=== PATIENT | female | born 1950 | race Caucasian/White ===

== ENCOUNTER 2020-04-01 15:55 | Emergency (ER) | payer MEDICARE, SELFPAY ==
--- NOTE | ~2020-04-01 | XR_ITS ---
EXAMINATION: XR chest 2V 04/01/2020 18:51 INDICATION: Shortness of breath. Lower extremity edema. PROCEDURE: 2 view chest COMPARISON: No prior studies for comparison. FINDINGS: The lungs are clear. The lungs are hyperinflated which is consistent with, but not diagnost ic of chronic obstructive pulmonary disease. The cardiomediastinal silhouette is within normal limits . There are no pleural effusions. There is no pneumothorax suspected. IMPRESSION: 1: NO ACUTE CARDIOPULMONARY DISEASE. Reviewed, dictated and finalized at location A. [facility]
[2020-04-01 15:58] VITALS: BP 138/88; PULSE 60; RESP 12; TEMP 35.7; O2SAT 100
--- NOTE | 2020-04-01 17:58 | ED.EXTPRO ---
HPI - Extremity Problem General Chief complaint: Extremity Problem,Nontraumatic Stated complaint: swollen feet and legs Time Seen by Provider: 04/01/20 16:49 Source: patient Mode of arrival: ambulatory Limitations: no limitations History of Present Illness HPI Narrative: This very pleasant 69-year-old lady comes into the ED today with a literal list of problems. Patient states that she has been unable to get into her primary care doctor because they are so far booked out due to Covid. Patient's main complaint today is that her bilateral lower extremities are swelling. Patient denies any pain associated with this. She also notes some redness and discoloration of her lower extremities. She denies any drainage or heat from her lower extremities. She does note that she has a chair with an ottoman that she typically sleeps in. Patient denies any history of dyspnea, dyspnea with exertion or chest pain. She states that she has never been diagnosed with congestive heart failure or clotting disorders. Patient notes that this has been building up over time and seems to get worse after she is sitting in her chair. Next patient notes a longstanding history of sinusitis associated with polyps and nasal congestion. She notes that this is not new or different for her and that this is her usual. She denies any new drainage. Next the patient states that she is having some issues with the cleanliness of the home that she lives on. She states that there are bedbugs and mice. She denies any rashes or pruritus at this time. Patient also endorses a change in the quality of her nails as well as loss of hair. Related Data Allergies Allergy/AdvReac Type Severity Reaction Status Date / Time No Known Allergies Allergy Verified 04/01/20 16:01 Review of Systems Review of Systems: Narrative: CONSTITUTIONAL: Denies fever, chills, or sweats. EYES: Denies visual changes, redness, or discharge. ENT: Denies rhinorrhea, congestion, sore throat, or otalgia. CARDIOVASCULAR: Denies chest pain, palpitations, or edema. RESPIRATORY: Denies cough or dyspnea. GASTROINTESTINAL: Denies abdominal pain, nausea, vomiting, or diarrhea. GENITOURINARY: Denies dysuria or hematuria. SKIN: Denies rash or itching. MUSCULOSKELETAL: Denies back pain, joint pain, or myalgia. Endorses edema in the bilateral lower extremities NEUROLOGIC: Denies headache, numbness, dizziness, or weakness. PSYCHIATRIC: Denies anxiety or depression. Exam Narrative: Exam Narrative: GENERAL: Well-appearing, well-nourished, and in no acute distress. HEAD: Normocephalic, atraumatic. EYES: PERRLA and EOMI. ENT: Nares clear, no rhinorrhea or epistaxis. Mucous membranes moist. Oropharynx without tonsillar hypertrophy exudate or other lesions. Bilateral TMs pearly pack nonbulging NECK: Supple. No adenopathy or masses. No carotid bruits or JVD CHEST: Clear to auscultation. No respiratory distress. No wheezes rales or rhonchi HEART: Regular rate and rhythm. No murmur heard. Normal peripheral pulses. ABDOMEN: Soft, nontender, nondistended, normal active bowel sounds. EXTREMITIES: Normal range of motion. 2+ pitting edema bilateral lower extremities SKIN: Warm, dry, no rash. NEURO: No focal deficits. Alert and oriented x3. PSYCH: Normal mood and affect. Course Vital Signs Vital signs: Vital Signs Temperature 35.7 C L 04/01/20 15:58 Pulse Rate 60 04/01/20 15:58 Respiratory Rate 12 04/01/20 15:58 Blood Pressure 138/88 04/01/20 15:58 Pulse Oximetry 100 04/01/20 15:58 Temperature 35.7 C L 04/01/20 15:58 Pulse Rate 60 04/01/20 19:04 Respiratory Rate 16 04/01/20 19:04 Blood Pressure 153/86 H 04/01/20 19:04 Pulse Oximetry 96 04/01/20 19:04 MDM - Extremity (Nontraumatic) MDM Narrative Medical decision making narrative: In brief this 69-year-old lady came into the emergency department with a multitude of complaints. None of them emergent. I did address the patient's pitting e
[2020-04-01] MEDS: FUROSEMIDE 40 MG TABLET PO (19:02)
[2020-04-01 19:04] VITALS: BP 153/86; PULSE 60; RESP 16; O2SAT 96
== END 2020-04-01 19:46 | disposition home or self-care (01) ==
PROVIDERS: Emergency Provider Emergency Medicine
DX: R60.9 Edema, unspecified (principal)
CPT/HCPCS: 71046; 99283; A9270

== ENCOUNTER 2020-06-19 08:20 | Outpatient (CLI) | payer MEDICARE, SELFPAY ==
--- NOTE | ~2020-06-19 | CT_ITS ---
EXAMINATION:CT lung screening DATE: 06/19/2020 10:19 INDICATION: Personal history of tobacco dependence. Current smoker with 50 pack year history. TECHNIQUE: Computed tomography (CT) of the chest was performed without intravenous contrast. Automate d exposure control and iterative reconstruction technique were employed. The dose-length product (DLP ) was 62.31 mGy-cm. COMPARISON: None. FINDINGS: There is mild scarring at the lung apices. There is mild emphysema. There is a 4 mm nodule at the minor fissure. There are patchy mild groundglass opacities in basilar right lower lobe. No ple ural effusion. The heart size is normal. There are coronary artery calcifications. No pericardial eff usion. There is kyphosis of thoracic spine with mild chronic anterior wedging of multiple vertebral b odies and mild spondylosis. IMPRESSION: 1. Lung-RADS category 2: Benign appearance or behavior. Continue annual screening with noncontrast lo w-dose chest CT in 12 months. 2. Mild patchy groundglass opacities in basilar right lower lobe, consistent with mild pneumonia. Reviewed, dictated and finalized at location B. IMPRESSION: 1. Lung-RADS category 2: Benign appearance or behavior. Continue annual screeni ng with noncontrast low-dose chest CT in 12 months. 2. Mild patchy groundglass opacities in basilar right lower lobe, consistent wi th mild pneumonia.
--- NOTE | 2020-06-19 08:44 | ECHO_ITS ---
Patient Info Name: Teresa Arroyo Age: 69 years : 1950 Gender: Female Ht: 66 in Wt: 171 lbs BSA: 1.92 m2 HR: 73 bpm BP: 127 / 66 mmHg Heart Rhythm: Sinus Rhythm Exam Date: 06/19/2020 9:05 AM Exam Location: [facility] Patient Status: Outpatient Admit Date: 06/19/2020 Staff Ordering Physician: Meliton Garcia MD Wallpaper Remover Steam: Mei Lester RDCS Attending Provider: Meliton Garcia MD Exam Type: CA echo doppler color flow Study Info Indications R60.9 - Edema, unspecified Complete two-dimensional, color flow and Doppler transthoracic echocardiogram is performed. Summary 1. Complete two-dimensional, color flow and Doppler transthoracic echocardiogram is performed. 2. Left ventricular chamber dimension is normal. 3. Left ventricular systolic function is normal, estimated at 60-65%. 4. The left ventricular diastolic function is grade I diastolic dysfunction. 5. E/e' 9 is minimally elevated. 6. Left atrial chamber dimension is mildly enlarged. 7. There is moderate aortic valve sclerosis. 8. There is mild mitral valve regurgitation. 9. There is mild tricuspid valve regurgitation. 10. No pulmonary hypertension, estimated pulmonary arterial systolic pressure is 35 mmHg. Left Ventricle E/e' 9 is minimally elevated. Left ventricular chamber dimension is normal. Left ventricular systolic function is normal, estimated at 60-65%. The left ventricular diastolic function is grade I diastolic dysfunction. Right Ventricle Right ventricular chamber dimension is normal. Right ventricular systolic function is normal. Left Atria Left atrial chamber dimension is mildly enlarged. Right Atria Right atrial chamber dimension is normal. Aortic Valve The aortic valve is trileaflet. There is moderate aortic valve sclerosis. There is no aortic valve stenosis. There is no aortic valve regurgitation. Pulmonic Valve There is no pulmonic regurgitation. Mitral Valve There is no mitral valve stenosis. There is mild mitral valve regurgitation. Tricuspid Valve There is mild tricuspid valve regurgitation. No pulmonary hypertension, estimated pulmonary arterial systolic pressure is 35 mmHg. Pericardium/Pleural There is no pericardial effusion. Inferior Vena Cava Normal inferior vena cava with >50% collapse upon inspiration consistent with normal right atrial pressure, 5 mmHg. Aorta The aortic root size at the sinus of Valsalva is normal. Left Ventricular Outflow Tract Name Value Normal LVOT 2D LVOT Diameter 1.8 cm LVOT Doppler LVOT Peak Gradient 7 mmHg LVOT Mean Gradient 3 mmHg LVOT VTI 31 cm LVOT VTI/AV VTI Ratio 0.9 LVOT Stroke Volume 84 ml LVOT CO 6.4 l/min LVOT CI 3.4 l/min/m2 Pulmonic Valve Name Value Normal
[2020-06-19 09:10] LABS: Basophils Percent Auto 0.5 % (0.2-1.2); Eosinophils Absolute Auto 0.1 K/mm3 (0-0.3); Eosinophils Percent Auto 2.5 % (0-4.4); Hematocrit 29.8 % (37.0-47.0); Hemoglobin 9.4 g/dL (12.0-15.0); Immature Granulocyte Absolute 0.02 K/mm3 (0.00-0.031); Immature Granulocyte Percent A 0.4 % (0-0.5); Lymphocytes Absolute Auto 1.08 K/mm3 (0.9-3.2); Lymphocytes Percent Auto 19.4 % (18.3-44.2); Mean Corpuscular HGB Conc 31.5 g/dl (32-36); Mean Corpuscular Hemoglobin 30.1 pg (26-34); Mean Corpuscular Volume 95.5 fl (80-100); Mean Platelet Volume 8.4 fl (7.4-10.4); Monocytes Absolute Auto 0.7 K/mm3 (0.1-0.6); Monocytes Percent Auto 11.8 % (2.6-8.5); Neutrophils Absolute Auto 3.7 K/mm3 (1.3-6.7); Neutrophils Percent Auto 65.4 % (45.5-73.1); Platelet Count Result 274 k/mm3 (150-375); Red Blood Count 3.12 M/mm3 (4.2-5.4); Red Cell Distribution Width 14.3 % (11.5-14.5); White Blood Count 5.6 K/mm3 (4.5-10.0)
[2020-06-19 09:22] LABS: Alanine Aminotransferase 26 U/L (4-35); Alkaline Phosphatase 99 U/L (38-126); Anion Gap 6 mmol/L (8-16); Aspartate Amino Transferase 34 U/L (14-36); Bilirubin,Total 0.5 mg/dL (0.2-1.3); Blood Urea Nitrogen 19 mg/dL (7-17); Calcium 9.7 mg/dL (8.4-10.2); Carbon Dioxide 31 mmol/L (22-30); Chloride 100 mmol/L (98-107); Cholesterol 123 mg/dL (0-200); Estimated Glomerular Filt Rate > 60; Glucose 92 mg/dL (65-105); HDL Direct 37 mg/dL; Potassium 4.8 mmol/L (3.4-5.0); Sodium 137 mmol/L (137-145); Triglycerides 62 mg/dL (<150)
[2020-06-19 09:31] LABS: NT Pro B Type Natriuretic Pept 143 pg/mL (5-100)
[2020-06-19 09:33] LABS: LDL Cholesterol Direct 62 mg/dL
[2020-06-19 10:58] LABS: Creatinine Urine 7.4 mg/dL
[2020-06-19 11:15] LABS: Vitamin D 25 Hydroxy 67.9 ng/mL
[2020-06-19 12:55] LABS: Microalbumin Urine Random < 6.0 mg/L (0-16.7)
== END 2020-06-19 08:21 | disposition home or self-care (01) ==
PROVIDERS: PCP Internal Medicine; Visit Provider Internal Medicine
DX: E03.9 Hypothyroidism, unspecified (principal); R03.0 Elevated blood-pressure reading, without diagnosis of hypertension; R60.9 Edema, unspecified; Z72.0 Tobacco use; E78.2 Mixed hyperlipidemia; I50.9 Heart failure, unspecified; Z87.891 Personal history of nicotine dependence; R91.8 Other nonspecific abnormal finding of lung field; I34.0 Nonrheumatic mitral (valve) insufficiency; I35.1 Nonrheumatic aortic (valve) insufficiency; I36.1 Nonrheumatic tricuspid (valve) insufficiency
CPT/HCPCS: 36415; 71271; 80053; 80061; 82043; 82306; 83880; 84443; 85025; 93306

== ENCOUNTER 2021-06-18 20:10 | Emergency (ER) | payer MEDICARE, SELFPAY ==
[2021-06-18 20:17] VITALS: BP 120/77; PULSE 89; RESP 14; TEMP 36.9; O2SAT 96
--- NOTE | 2021-06-18 21:15 | ED.GENADULT ---
HPI - General Adult General Chief complaint: Anxiety Stated complaint: IBS, constipated Time Seen by Provider: 06/18/21 21:00 Source: patient Mode of arrival: ambulatory Limitations: no limitations History of Present Illness HPI narrative: Patient is a 70-year-old female complaining of poor appetite, stress at home, problems with my irritable bowel described as alternating diarrhea and constipation for the past few months, weight loss, not sleeping well has been going on for the past month. Patient states that she has seen her doctor for the above problems but provided no help. Patient states that she is stressed at home because of her roommate, not getting along well. Patient denies any chest pain, shortness of breath, abdominal pain, nausea, vomiting, urinary symptoms, fever or chills. Related Data Home Medications Medication Instructions Recorded Confirmed ergocalciferol (vitamin D2) 1,250 1,250 mcg PO WEEKLY 06/08/20 06/23/20 mcg (50,000 unit) capsule multivitamin 1 tablet PO DAILY 06/08/20 06/23/20 Allergies Allergy/AdvReac Type Severity Reaction Status Date / Time No Known Allergies Allergy Verified 06/23/20 12:58 Review of Systems Review of Systems: All systems reviewed & are unremarkable except as noted in HPI and below Constitutional: Constitutional: Denies body ache(s), Denies chills, Denies excessive sweating, Denies fever(s), Denies headache(s) and Denies weakness Eyes: Eyes: Denies blurry vision, Denies change in vision and Denies loss of vision ENT: Denies dizziness, Denies ear discharge, Denies headache(s), Denies lip swelling, Denies epistaxis, Denies nasal congestion, Denies neck pain, Denies throat swelling and Denies tongue swelling Cardiovascular: Cardiovascular: Denies chest pain, Denies chest pain at rest, Denies chest pain with activity, Denies diaphoresis, Denies rapid heart rate, Denies edema, Denies irregular heart rhythm, Denies lightheadedness, Denies palpitations, Denies dyspnea and Denies dyspnea on exertion Respiratory: Respiratory: Denies chest congestion, Denies cough, Denies hemoptysis, Denies dyspnea and Denies dyspnea on exertion Gastrointestinal: Gastrointestinal: Denies abdominal pain, Denies melena, Denies hematochezia, Denies diarrhea, Denies nausea, Denies vomiting and Denies hematemesis Musculoskeletal: Musculoskeletal: Denies abnormal gait, Denies deformity, Denies joint swelling, Denies limited range of motion, Denies neck pain and Denies numbness Neurologic: Denies Abnormal speech present, Denies abnormal gait, Denies confusion, Denies dizziness, Denies headache(s), Denies focal weakness, Denies loss of vision, Denies numbness, Denies Other visual disturbances and Denies Sensory deficit (Neuro) Psychiatric: Psychiatric: Denies confusion, Denies auditory hallucinations, Denies homicidal ideation and Denies suicidal ideation Endocrine: Endocrine: Denies cold intolerance, Denies excessive sweating, Denies fatigue, Denies heat intolerance and Denies palpitations Hematologic/Lymphatic: Hematologic/Lymphatic: Denies easy bleeding and Denies easy bruising Allergic/Immunologic: Allergic/Immunologic: Denies lip swelling, Denies throat swelling and Denies tongue swelling PMFSH Past Medical History Medical History Anxiety Arthritis COPD (chronic obstructive pulmonary disease) Dependent edema History of one miscarriage Irritable bowel Surgical History Surgical History History of sinus surgery Family History Family History Father Diabetes mellitus Mother Breast cancer Social History Social History Smoking packs per day: 0.50 Smoking cigarettes per day: 10.0 Years smoked: 50 Smoking pack-years: 25.00 Tobacco type: cigarettes Second hand to
[2021-06-18 21:48] LABS: Basophils Percent Auto 0.4 % (0.2-1.2); Eosinophils Absolute Auto 0.2 K/mm3 (0-0.3); Eosinophils Percent Auto 4.6 % (0-4.4); Hematocrit 36.2 % (37.0-47.0); Hemoglobin 11.9 g/dL (12.0-15.0); Immature Granulocyte Absolute 0.02 K/mm3 (0.00-0.031); Immature Granulocyte Percent A 0.4 % (0-0.5); Lymphocytes Absolute Auto 1.29 K/mm3 (0.9-3.2); Lymphocytes Percent Auto 24.7 % (18.3-44.2); Mean Corpuscular HGB Conc 32.9 g/dl (32-36); Mean Corpuscular Hemoglobin 30.6 pg (26-34); Mean Corpuscular Volume 93.1 fl (80-100); Mean Platelet Volume 8.7 fl (7.4-10.4); Monocytes Absolute Auto 0.7 K/mm3 (0.1-0.6); Monocytes Percent Auto 13.2 % (2.6-8.5); Neutrophils Percent Auto 56.7 % (45.5-73.1); Platelet Count Result 244 k/mm3 (150-375); Red Blood Count 3.89 M/mm3 (4.2-5.4); Red Cell Distribution Width 13.5 % (11.5-14.5); White Blood Count 5.2 K/mm3 (4.5-10.0)
[2021-06-18 21:52] LABS: Add Urine Microscopic? YES; Appearance Urine Clear (Clear); Bilirubin Urine Negative (Negative); Blood Urine Negative (Negative); Color Urine Yellow (Yellow); Glucose Urine UA Negative (Negative); Ketones Urine Negative (Negative); Leukocyte Esterase Ur Negative LEU/UL (Negative); Nitrate Urine Negative (Negative); Protein Urine Negative (Negative); RBC Urine 0-2 /hpf (0-2); Specific Grav Ur 1.005 (1.001-1.035); Urobilinogen Urine Negative mg/dL (<2.0); WBC Urine 0-3 /hpf
[2021-06-18 22:02] LABS: Alanine Aminotransferase 20 U/L (4-35); Albumin Level 4.1 g/dL (3.5-5.1); Alkaline Phosphatase 116 U/L (38-126); Anion Gap 5 mmol/L (8-16); Aspartate Amino Transferase 35 U/L (14-36); Bilirubin,Total 0.3 mg/dL (0.2-1.3); Blood Urea Nitrogen 16 mg/dL (7-17); Calcium 8.9 mg/dL (8.4-10.2); Carbon Dioxide 32 mmol/L (22-30); Chloride 97 mmol/L (98-107); Estimated Glomerular Filt Rate > 60; Glucose 96 mg/dL (65-110); Potassium 4.1 mmol/L (3.4-5.0); Sodium 134 mmol/L (137-145)
[2021-06-18] MEDS: SODIUM CHLORIDE 0.9% IV 1,000 ML 999 ML IV CONT (22:55)
[2021-06-18 23:03] LABS: Thyroid Stimulating Hormone < 0.015 uIU/mL (0.465-4.680)
[2021-06-19 00:25] VITALS: BP 116/71; PULSE 74; RESP 16; O2SAT 99
== END 2021-06-19 00:25 | disposition home or self-care (01) ==
PROVIDERS: Emergency Provider Emergency Medicine; PCP Internal Medicine
DX: F41.9 Anxiety disorder, unspecified (principal); F32.A Depression, unspecified; E03.9 Hypothyroidism, unspecified; J44.9 Chronic obstructive pulmonary disease, unspecified; K58.9 Irritable bowel syndrome, unspecified; M19.90 Unspecified osteoarthritis, unspecified site; F17.210 Nicotine dependence, cigarettes, uncomplicated
CPT/HCPCS: 36415; 80053; 81001; 84443; 85025; 96360; 99283; J7030

== ENCOUNTER 2021-09-01 22:13 | Emergency (ER) | payer MEDICARE, SELFPAY ==
--- NOTE | ~2021-09-01 | CT_ITS ---
EXAMINATION: CT abdomen pelvis w con DATE: 09/02/2021 02:48 INDICATION: Abdomen pain for several months. TECHNIQUE: Computed tomography (CT) of the abdomen and pelvis was performed with 100 cc Omnipaque 300 intravenous contrast. The dose-length product was 312.33 mGy-cm. Automated exposure control and iter ative reconstruction technique were employed. COMPARISON: None. FINDINGS: Lung bases are unremarkable. Heart size normal. No significant vascular abnormality. No lym phadenopathy. Nonobstructive bowel gas pattern. There is a slightly hyperdense appearance to the rect um, nonspecific. No mass identified. The liver, spleen, pancreas, adrenal glands and kidneys are unre markable. There is hyperdense material in the gallbladder which may represent sludge or stones. The a ppendix is not positively visualized. There is no pericecal inflammatory change to suggest appendici tis. No free air or free fluid. There are pancreatic calcifications, consistent with chronic pancreat itis. IMPRESSION: 1. No acute abdominal abnormality identified. 2: Possible gallstones versus sludge. Consider correlation with ultrasound. 3: Hyperdense appearance to the rectum, nonspecific. No discrete mass identified. Consider correlatio n with colonoscopy. 4: Chronic pancreatitis. Reviewed, dictated and finalized at location A. IMPRESSION: 1. No acute abdominal abnormality identified. 2: Possible gallstones versus sludge. Consider correlation with ultrasound. 3: Hyperdense appearance to the rectum, nonspecific. No discrete mass identifie d. Consider correlation with colonoscopy. 4: Chronic pancreatitis.
[2021-09-01 22:23] VITALS: BP 108/50; PULSE 66; RESP 18; TEMP 36.6; O2SAT 100
[2021-09-02] VITALS (12 sets, daily range): BP systolic 102–138; BP diastolic 62–89; PULSE 58–71; RESP 13–19; O2SAT 94–100
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
[2021-09-02 02:11] LABS: Basophils Percent Auto 0.6 % (0.2-1.2); Eosinophils Absolute Auto 0.4 K/mm3 (0-0.3); Hematocrit 36.3 % (37.0-47.0); Hemoglobin 12.1 g/dL (12.0-15.0); Immature Granulocyte Absolute 0.01 K/mm3 (0.00-0.031); Immature Granulocyte Percent A 0.2 % (0-0.5); Lymphocytes Absolute Auto 1.43 K/mm3 (0.9-3.2); Lymphocytes Percent Auto 26.4 % (18.3-44.2); Mean Corpuscular HGB Conc 33.3 g/dl (32-36); Mean Corpuscular Hemoglobin 30.5 pg (26-34); Mean Corpuscular Volume 91.4 fl (80-100); Mean Platelet Volume 8.5 fl (7.4-10.4); Monocytes Absolute Auto 0.6 K/mm3 (0.1-0.6); Monocytes Percent Auto 10.7 % (2.6-8.5); Neutrophils Percent Auto 55.1 % (45.5-73.1); Platelet Count Result 247 k/mm3 (150-375); Red Blood Count 3.97 M/mm3 (4.2-5.4); Red Cell Distribution Width 14.2 % (11.5-14.5); White Blood Count 5.4 K/mm3 (4.5-10.0)
[2021-09-02] MEDS: SODIUM CHLORIDE 0.9% IV 1,000 ML 999 ML IV CONT (02:18)
[2021-09-02 02:25] LABS: Alanine Aminotransferase 18 U/L (6-35); Albumin Level 4.1 g/dL (3.5-5.1); Alkaline Phosphatase 112 U/L (38-126); Anion Gap 3 mmol/L (8-16); Aspartate Amino Transferase 31 U/L (14-36); Bilirubin,Total 0.7 mg/dL (0.2-1.3); Blood Urea Nitrogen 12 mg/dL (7-17); Carbon Dioxide 32 mmol/L (22-30); Chloride 97 mmol/L (98-107); Estimated CRCL calculation 62 ml/min; Estimated Glomerular Filt Rate > 60; Glucose 91 mg/dL (65-110); Lipase 104 U/L (23-300); Potassium 3.8 mmol/L (3.4-5.0); Sodium 132 mmol/L (137-145)
[2021-09-02 02:45] LABS: Appearance Urine Clear (Clear); Bilirubin Urine Negative (Negative); Blood Urine Negative (Negative); Color Urine Yellow (Yellow); Glucose Urine UA Negative (Negative); Ketones Urine Negative (Negative); Leukocyte Esterase Ur Trace LEU/UL (Negative); Nitrate Urine Negative (Negative); Protein Urine Negative (Negative); Specific Grav Ur 1.015 (1.001-1.035); Urobilinogen Urine 0.2 mg/dL (<2.0)
[2021-09-02 02:49] LABS: Squamous Epithelial Cell Urine Rare /hpf (Few); WBC Urine 0-3 /hpf
[2021-09-02 03:13] LABS: Add Urine Microscopic? YES
--- NOTE | 2021-09-02 05:05 | PC.NURSE ---
per ED charge nurse let patient sleep in room until the bus is open.
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
== END 2021-09-02 05:05 | disposition home or self-care (01) ==
PROVIDERS: Emergency Provider Emergency Medicine; PCP Family Medicine
DX: K59.00 Constipation, unspecified (principal); R10.30 Lower abdominal pain, unspecified; J44.9 Chronic obstructive pulmonary disease, unspecified; F17.210 Nicotine dependence, cigarettes, uncomplicated
CPT/HCPCS: 36415; 74177; 80053; 81001; 83690; 85025; 96360; 96361; 99284; J7030; Q9967

== ENCOUNTER 2022-05-11 13:56 | Outpatient (CLI) | payer MEDICARE, MEDICAID, SELFPAY ==
[2022-05-11 14:34] LABS: Basophils Absolute Auto 0.1 K/mm3 (0.0-0.1); Basophils Percent Auto 0.5 % (0.2-1.2); Eosinophils Percent Auto 0.2 % (0-4.4); Hematocrit 38.1 % (37.0-47.0); Hemoglobin 12.4 g/dL (12.0-15.0); Immature Granulocyte Absolute 0.21 K/mm3 (0.00-0.031); Immature Granulocyte Percent A 1.7 % (0-0.5); Lymphocytes Absolute Auto 0.66 K/mm3 (0.9-3.2); Lymphocytes Percent Auto 5.4 % (18.3-44.2); Mean Corpuscular HGB Conc 32.5 g/dl (32-36); Mean Corpuscular Hemoglobin 30.8 pg (26-34); Mean Corpuscular Volume 94.8 fl (80-100); Mean Platelet Volume 8.5 fl (7.4-10.4); Monocytes Absolute Auto 0.4 K/mm3 (0.1-0.6); Monocytes Percent Auto 3.3 % (2.6-8.5); Neutrophils Absolute Auto 10.9 K/mm3 (1.3-6.7); Neutrophils Percent Auto 88.9 % (45.5-73.1); Platelet Count Result 280 k/mm3 (150-375); Red Blood Count 4.02 M/mm3 (4.2-5.4); Red Cell Distribution Width 14.5 % (11.5-14.5); White Blood Count 12.2 K/mm3 (4.5-10.0)
[2022-05-11 15:03] LABS: Alanine Aminotransferase 23 U/L (6-35); Alkaline Phosphatase 105 U/L (38-126); Anion Gap 4 mmol/L (8-16); Aspartate Amino Transferase 26 U/L (14-36); Bilirubin,Total 0.4 mg/dL (0.2-1.3); Blood Urea Nitrogen 25 mg/dL (7-17); Calcium 8.7 mg/dL (8.4-10.2); Carbon Dioxide 33 mmol/L (22-30); Chloride 99 mmol/L (98-107); Estimated Glomerular Filt Rate 55; Glucose 109 mg/dL (65-110); Potassium 4.5 mmol/L (3.4-5.0); Sodium 136 mmol/L (137-145)
[2022-05-11 15:18] LABS: Free T4 Free Thyroxine 0.97 ng/mL (0.78-2.19)
[2022-05-11 15:28] LABS: Total Triiodothyronine (T3) 0.74 NG/ML (0.97-1.69)
== END 2022-05-11 13:57 | disposition home or self-care (01) ==
LOC: ANHLAB 13:58
PROVIDERS: PCP Family Medicine; Visit Provider Nurse Practitioner Gerontology
DX: E03.9 Hypothyroidism, unspecified (principal); I50.9 Heart failure, unspecified; J44.9 Chronic obstructive pulmonary disease, unspecified
CPT/HCPCS: 36415; 80053; 84439; 84443; 84480; 85025

== ENCOUNTER 2022-07-13 17:45 | Emergency (ER) | payer MEDICARE, MEDICAID, SELFPAY ==
[2022-07-13] VITALS (17 sets, daily range): BP systolic 106–137; BP diastolic 63–94; PULSE 65–87; RESP 9–24; TEMP 35.9–36.6; O2SAT 94–100
--- NOTE | ~2022-07-13 | XR_ITS ---
EXAMINATION: XR chest 2V DATE: 07/13/2022 23:18 INDICATION: Shortness of breath TECHNIQUE: PA and lateral views of the chest were obtained. COMPARISON: Chest radiograph dated 04/01/[address] dated 06/19/2020 FINDINGS: Hyperexpansion of lungs with flattening of the diaphragm and increased retrosternal clear space consi stent with mild emphysema better appreciated on prior CT. No focal airspace opacities, pulmonary ginger a, pleural effusion or pneumothorax. Arch size is normal. Moderate thoracic kyphosis with chronic mil d anterior wedging of multiple vertebral bodies and mild spondylosis. IMPRESSION: 1. Mild emphysema. No acute cardiopulmonary disease. Reviewed, dictated and finalized at location A.
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
[2022-07-13] MEDS: IPRATROPIUM BR 0.02% INH SOLN 0.5 MG/2.5 ML VIAL INHALATION (20:53)
[2022-07-13] MEDS: LEVALBUTEROL NEB 1.25 MG/3 ML 2.5 MG INHALATION (20:53)
[2022-07-13] MEDS: SODIUM CHLORIDE 0.9% IV 1,000 ML 999 ML IV CONT (21:06)
[2022-07-13 21:52] LABS: Basophils Absolute Auto 0.1 K/mm3 (0.0-0.1); Basophils Percent Auto 0.5 % (0.2-1.2); Eosinophils Absolute Auto 0.4 K/mm3 (0-0.3); Eosinophils Percent Auto 4.4 % (0-4.4); Hemoglobin 15.1 g/dL (12.0-15.0); Immature Granulocyte Absolute 0.09 K/mm3 (0.00-0.031); Immature Granulocyte Percent A 0.9 % (0-0.5); Lymphocytes Absolute Auto 1.24 K/mm3 (0.9-3.2); Lymphocytes Percent Auto 12.6 % (18.3-44.2); Mean Corpuscular HGB Conc 32.8 g/dl (32-36); Mean Corpuscular Hemoglobin 30.8 pg (26-34); Mean Corpuscular Volume 93.7 fl (80-100); Mean Platelet Volume 8.7 fl (7.4-10.4); Monocytes Absolute Auto 0.6 K/mm3 (0.1-0.6); Monocytes Percent Auto 6.5 % (2.6-8.5); Neutrophils Absolute Auto 7.4 K/mm3 (1.3-6.7); Neutrophils Percent Auto 75.1 % (45.5-73.1); Platelet Count Result 350 k/mm3 (150-375); Red Blood Count 4.91 M/mm3 (4.2-5.4); Red Cell Distribution Width 13.8 % (11.5-14.5); White Blood Count 9.8 K/mm3 (4.5-10.0)
[2022-07-13 22:06] LABS: Anion Gap 7 mmol/L (8-16); Blood Urea Nitrogen 12 mg/dL (7-17); Calcium 9.6 mg/dL (8.4-10.2); Carbon Dioxide 36 mmol/L (22-30); Chloride 93 mmol/L (98-107); Estimated CRCL calculation 61 ml/min; Estimated Glomerular Filt Rate > 60; Glucose 82 mg/dL (65-110); Potassium 4.1 mmol/L (3.4-5.0); Sodium 136 mmol/L (137-145)
== END 2022-07-13 22:26 | disposition home or self-care (01) ==
PROVIDERS: Emergency Provider Emergency Medicine; PCP Family Medicine
DX: K59.00 Constipation, unspecified (principal); R06.00 Dyspnea, unspecified; E03.9 Hypothyroidism, unspecified; J43.9 Emphysema, unspecified; F17.210 Nicotine dependence, cigarettes, uncomplicated
CPT/HCPCS: 36415; 71046; 80048; 85025; 94640; 96360; 99283; J7030

== ENCOUNTER 2022-07-26 14:44 | Outpatient (CLI) | payer MEDICARE, MEDICAID, SELFPAY ==
--- NOTE | ~2022-07-26 | CT_ITS ---
EXAMINATION: CT abdomen pelvis wo con DATE: 07/26/2022 15:05 INDICATION: Chronic constipation. Prior abnormal CT . TECHNIQUE: Computed tomography (CT) of the abdomen and pelvis was performed without intravenous contr ast. Automated exposure control and iterative reconstruction technique were employed. The dose-length product was 409.24 mGy-cm. COMPARISON: None FINDINGS: Minimal discoid atelectasis at the lingula. Visualized inferior heart is normal. No pericardial or pl eural effusion. Small sliding-type hiatal hernia. A few gallstones in the dependent aspect of the oth erwise normal gallbladder. No wall thickening or pericholecystic inflammatory stranding to suggest ac [place] cholecystitis. Liver, spleen and bilateral adrenal glands are normal. A few tiny parenchymal calc ifications in the pancreas likely sequela of chronic pancreatitis. 1-2 mm nonobstructing stone in the inferior calyx of the left kidney. Horizontal orientation of the otherwise normal right kidney. Norm al retrocecal appendix. Nonspecific fluid throughout multiple loops of nondilated small bowel. Persis tent wall thickening at the rectum. Bladder, uterus and bilateral adnexa are unremarkable. No free in traperitoneal gas or fluid. No pathologically enlarged abdominal or pelvic lymphadenopathy. Moderate lumbar and lower thoracic spondylosis. IMPRESSION: 1. Nonspecific wall thickening at the rectum most likely infectious or inflammatory in etiology but c ould not exclude malignancy. Consider further evaluation with colonoscopy/proctoscopy. 2. Nonspecific fluid throughout nondilated small bowel which could be due to nonspecific enteritis or potentially related to medical treatment for reported constipation. 3. Cholelithiasis. 4. 1-2 mm nonobstructing left renal stone. Reviewed, dictated and finalized at location B. IMPRESSION: 1. Nonspecific wall thickening at the rectum most likely infectious or inflamma tory in etiology but could not exclude malignancy. Consider further evaluation with colonoscopy/proctoscopy. 2. Nonspecific fluid throughout nondilated small bowel which could be due to no nspecific enteritis or potentially related to medical treatment for reported co nstipation. 3. Cholelithiasis. 4. 1-2 mm nonobstructing left renal stone.
[2022-07-26 16:01] LABS: Total Triiodothyronine (T3) 0.78 NG/ML (0.97-1.69)
[2022-07-26 16:13] LABS: Free T4 Free Thyroxine 1.18 ng/mL (0.78-2.19)
== END 2022-07-26 14:45 | disposition home or self-care (01) ==
PROVIDERS: PCP Family Medicine; Visit Provider Nurse Practitioner Gerontology
DX: R93.5 Abnormal findings on diagnostic imaging of other abdominal regions, including retroperitoneum (principal); E03.9 Hypothyroidism, unspecified; I50.9 Heart failure, unspecified; K59.09 Other constipation; K80.20 Calculus of gallbladder without cholecystitis without obstruction; N20.0 Calculus of kidney
CPT/HCPCS: 36415; 74176; 84439; 84443; 84480

== ENCOUNTER 2023-02-15 15:27 | Outpatient (CLI) | payer MEDICARE, MEDICAID, SELFPAY ==
--- NOTE | ~2023-02-15 | XR_ITS ---
XR chest 2V DATE: 02/15/2023 15:45 INDICATION: Cough, shortness of breath TECHNIQUE: PA and lateral views COMPARISON: 07/13/2022 PA and lateral chest FINDINGS: Bilateral hyperinflation, consistent with COPD. No pulmonary infiltrate or consolidation, p leural effusion or pulmonary vascular congestion or pneumothorax is detected. Normal heart size. No hilar or mediastinal enlargement. There is aortic arch calcification. Diffuse osteopenia. IMPRESSION: Bilateral hyperinflation consistent with COPD Reviewed, dictated and finalized at location A. A MAKER
[2023-02-15 15:56] LABS: Basophils Percent Auto 0.5 % (0.2-1.2); Eosinophils Absolute Auto 0.2 K/mm3 (0-0.3); Eosinophils Percent Auto 3.7 % (0-4.4); Hematocrit 31.2 % (37.0-47.0); Hemoglobin 9.6 g/dL (12.0-15.0); Immature Granulocyte Absolute 0.02 K/mm3 (0.00-0.031); Immature Granulocyte Percent A 0.4 % (0-0.5); Lymphocytes Absolute Auto 0.78 K/mm3 (0.9-3.2); Lymphocytes Percent Auto 13.8 % (18.3-44.2); Mean Corpuscular HGB Conc 30.8 g/dl (32-36); Mean Corpuscular Hemoglobin 26.6 pg (26-34); Mean Corpuscular Volume 86.4 fl (80-100); Mean Platelet Volume 8.2 fl (7.4-10.4); Monocytes Absolute Auto 0.6 K/mm3 (0.1-0.6); Neutrophils Percent Auto 70.6 % (45.5-73.1); Platelet Count Result 294 k/mm3 (150-375); Red Blood Count 3.61 M/mm3 (4.2-5.4); Red Cell Distribution Width 14.9 % (11.5-14.5); White Blood Count 5.7 K/mm3 (4.5-10.0)
[2023-02-15 16:15] LABS: Alanine Aminotransferase 26 U/L (6-35); Albumin Level 4.2 g/dL (3.5-5.1); Alkaline Phosphatase 117 U/L (38-126); Anion Gap 7 mmol/L (8-16); Aspartate Amino Transferase 39 U/L (14-36); Bilirubin,Total 0.5 mg/dL (0.2-1.3); Blood Urea Nitrogen 18 mg/dL (7-17); Calcium 9.1 mg/dL (8.4-10.2); Carbon Dioxide 28 mmol/L (22-30); Chloride 95 mmol/L (98-107); Estimated Glomerular Filt Rate > 60; Glucose 94 mg/dL (65-110); Potassium 4.8 mmol/L (3.4-5.0); Sodium 130 mmol/L (137-145)
[2023-02-15 16:22] LABS: NT Pro B Type Natriuretic Pept 31 pg/mL (19.9-100)
== END 2023-02-15 15:28 | disposition home or self-care (01) ==
PROVIDERS: PCP Family Medicine; Visit Provider Physician Assistant
DX: R06.02 Shortness of breath (principal); R53.1 Weakness; J44.9 Chronic obstructive pulmonary disease, unspecified; R91.8 Other nonspecific abnormal finding of lung field
CPT/HCPCS: 36415; 71046; 80053; 83880; 85025

== ENCOUNTER 2023-06-09 02:47 | Day surgery (SDC) | payer MEDICARE, MEDICAID, SELFPAY ==
[2023-05-24 14:07] VITALS: BMI 24.9
[2023-06-09 11:13] VITALS: BP 125/80; PULSE 78; RESP 20; TEMP 36.4; O2SAT 100
[2023-06-09] MEDS: LACTATED RINGERS 1,000 ML 150 ML IV CONT (11:24)
--- NOTE | 2023-06-09 11:47 | WPDANESEPPF ---
Anes - Initial Pre Proc Eval Procedure: Operation Date: 06/09/23 12:30 Proposed Procedures p Colonoscopy - José Luis Rodas MD Date/Time: 06/09/23 11:47 Surgeon: José Luis Rodas MD Pre Op Diagnosis: Abn. findings on Imaging of digestive tract Patient Data Age: 72 Gender: F Height: 1.68 m Weight: 81.2 kg Last Vital Signs Temp 36.4 C 06/09/23 11:13 Pulse 78 06/09/23 11:13 Resp 20 06/09/23 11:13 BP 125/80 06/09/23 11:13 Pulse Ox 100 06/09/23 11:13 O2 Del Method Room Air 06/09/23 11:13 Allergies Allergy/AdvReac Type Severity Reaction Status Date / Time No Known Allergies Allergy Verified 06/09/23 11:05 Home Medications Medication Instructions Recorded Confirmed Type multivitamin (Multiple Vitamins 1 tablet PO DAILY 06/08/20 05/24/23 History tablet) fluticasone propionate 50 1 spray intranasal DAILY #16 grams 02/15/23 05/24/23 Rx mcg/actuation nasal spray,suspension lactulose 10 gram/15 mL oral See Rx Instructions .Route 02/24/23 05/24/23 Rx solution .COMPLEX #8,514 mL fluticasone 250 mcg-salmeterol 50 1 inh inhalation BID #60 ea 03/17/23 05/24/23 Rx mcg/dose blistr powdr for inhalation (Advair Diskus) fluticasone propionate 115 2 puff inhalation Q12H 90 days #12 03/28/23 06/09/23 Rx mcg-salmeterol 21 mcg/actuation grams HFA inhaler (Advair HFA) levothyroxine 150 mcg tablet See Rx Instructions .Route 04/24/23 05/24/23 Rx .COMPLEX #90 tabs furosemide 40 mg tablet See Rx Instructions .Route 04/28/23 05/24/23 Rx .COMPLEX #90 tabs spironolactone 25 mg tablet See Rx Instructions .Route 05/17/23 05/24/23 Rx .COMPLEX #30 tabs azelastine 137 mcg (0.1 %) nasal See Rx Instructions .Route 05/22/23 05/24/23 Rx spray aerosol .COMPLEX #30 mL linaclotide 145 mcg capsule 145 mcg PO DAILY #90 caps 05/23/23 05/24/23 Rx (Linzess) triamcinolone acetonide 0.1 % See Rx Instructions .Route 05/24/23 05/24/23 History topical cream .COMPLEX PRN Itching albuterol sulfate 90 mcg/actuation See Rx Instructions .Route 05/30/23 06/09/23 Rx aerosol inhaler .COMPLEX PRN Shortness Of Breath Or Wheezing #8.5 grams Patient hx anesthesia problems: none Family hx anesthesia problems: none Results Review: All pre-operative results and documents have been reviewed as part of the pre-operative evaluation. [facility] Past Medical History Medical History Anxiety Aortic valve sclerosis Arthritis Chronic constipation COPD (chronic obstructive pulmonary disease) Dependent edema Emphysema lung History of one miscarriage Irritable bowel Tobacco abuse Surgical History Surgical History History of sinus surgery Family History Family History Father Diabetes mellitus Mother Breast cancer Social History Social History Social History: Single Smoking packs per day: 0.5 Smoking cigarettes per day: 10.0 Years smoked: 50 Smoking pack-years: 25.00 Smoking status: Current every day smoker Tobacco type: cigarettes Second hand tobacco smoke exposure: No Alcohol intake: former Alcohol use details: none in the last 5 yrs Substance use: never Substance use type: does not use Lack of Transportation: No Lack of Food: Never True Current Housing: I Have Housing Concerned About Future Housing: No Difficulty Paying Gas/Electric Bills: No Difficulty Paying for Meds: No Currently Unemployed: YES Education: Don't Know Difficulty w/ Childcare or Family Care: No Living arrangements: with roommate(s) Occupation/Education: retired Gender identity (if verbalized by the patient): Female Sexual Orientation (if Verbalized by the Patient): Straight or Heterosexual Spiritual care concerns: No
--- NOTE | 2023-06-09 12:23 | PM.HPGS ---
History of Present Illness History of Present Illness Consent: Risks, benefits, and alternatives have been discussed and questions answered. Patient agrees to proceed with procedure. Chief complaint: Abn. findings on Imaging of digestive tract Narrative: Teresa Arroyo is a 72 year old female with ibs-c on linzess and lactulose, never had colonoscopy. CT scan showed possible rectal inflammation Review of Systems Review of Systems: All systems reviewed & are unremarkable except as noted in HPI and below PMFSH Past Medical History Medical History Anxiety Aortic valve sclerosis Arthritis Chronic constipation COPD (chronic obstructive pulmonary disease) Dependent edema Emphysema lung History of one miscarriage Irritable bowel Tobacco abuse Surgical History Surgical History History of sinus surgery Family History Family History Father Diabetes mellitus Mother Breast cancer Social History Social History Social History: Single Smoking packs per day: 0.5 Smoking cigarettes per day: 10.0 Years smoked: 50 Smoking pack-years: 25.00 Smoking status: Current every day smoker Tobacco type: cigarettes Second hand tobacco smoke exposure: No Alcohol intake: former Alcohol use details: none in the last 5 yrs Substance use: never Substance use type: does not use Lack of Transportation: No Lack of Food: Never True Current Housing: I Have Housing Concerned About Future Housing: No Difficulty Paying Gas/Electric Bills: No Difficulty Paying for Meds: No Currently Unemployed: YES Education: Don't Know Difficulty w/ Childcare or Family Care: No Living arrangements: with roommate(s) Occupation/Education: retired Gender identity (if verbalized by the patient): Female Sexual Orientation (if Verbalized by the Patient): Straight or Heterosexual Spiritual care concerns: No Meds Home Medications and Allergies Home Medications Medication Instructions Recorded Confirmed Type multivitamin (Multiple Vitamins 1 tablet PO DAILY 06/08/20 05/24/23 History tablet) fluticasone propionate 50 1 spray intranasal DAILY #16 grams 02/15/23 05/24/23 Rx mcg/actuation nasal spray,suspension lactulose 10 gram/15 mL oral See Rx Instructions .Route 02/24/23 05/24/23 Rx solution .COMPLEX #8,514 mL fluticasone 250 mcg-salmeterol 50 1 inh inhalation BID #60 ea 03/17/23 05/24/23 Rx mcg/dose blistr powdr for inhalation (Advair Diskus) fluticasone propionate 115 2 puff inhalation Q12H 90 days #12 03/28/23 06/09/23 Rx mcg-salmeterol 21 mcg/actuation grams HFA inhaler (Advair HFA) levothyroxine 150 mcg tablet See Rx Instructions .Route 04/24/23 05/24/23 Rx .COMPLEX #90 tabs furosemide 40 mg tablet See Rx Instructions .Route 04/28/23 05/24/23 Rx .COMPLEX #90 tabs spironolactone 25 mg tablet See Rx Instructions .Route 05/17/23 05/24/23 Rx .COMPLEX #30 tabs azelastine 137 mcg (0.1 %) nasal See Rx Instructions .Route 05/22/23 05/24/23 Rx spray aerosol .COMPLEX #30 mL linaclotide 145 mcg capsule 145 mcg PO DAILY #90 caps 05/23/23 05/24/23 Rx (Linzess) triamcinolone acetonide 0.1 % See Rx Instructions .Route 05/24/23 05/24/23 History topical cream .COMPLEX PRN Itching albuterol sulfate 90 mcg/actuation See Rx Instructions .Route 05/30/23 06/09/23 Rx aerosol inhaler .COMPLEX PRN Shortness Of Breath Or Wheezing #8.5 grams Allergies Allergy/AdvReac Type Severity Reaction Status Date / Time No Known Allergies Allergy Verified 06/09/23 11:05 Vital Signs Vital Signs - 24 hr 06/09/23 11:13 Temperature 97.6 F Pulse Rate 78 Respiratory Rate 20 Blood Pressure 125/80 Pulse Oximetry 100 Oxygen Delivery Room Air Exam Const: Gen
[2023-06-09 12:39] VITALS: BP 88/52; PULSE 84; RESP 16; O2SAT 100
[2023-06-09 12:49] VITALS: BP 110/66; PULSE 82; RESP 16; O2SAT 100
[2023-06-09 12:59] VITALS: BP 108/67; PULSE 81; RESP 17; O2SAT 100
--- NOTE | 2023-06-09 13:39 | SUR.PHASEII ---
waited on commercial driver's license driver
== END 2023-06-09 13:22 | disposition home or self-care (01) ==
PROVIDERS: PCP Family Medicine; Visit Provider Internal Medicine Gastroenterology
PROC: 0DJD8ZZ Inspection of Lower Intestinal Tract, Via Natural or Artificial Opening Endoscopic (ICD-10-PCS; CPT 45378; principal; 2023-06-09 12:30)
DX: K64.8 Other hemorrhoids (principal); K59.09 Other constipation; J44.9 Chronic obstructive pulmonary disease, unspecified; J43.9 Emphysema, unspecified; F41.9 Anxiety disorder, unspecified; F17.210 Nicotine dependence, cigarettes, uncomplicated; Z79.51 Long term (current) use of inhaled steroids
CPT/HCPCS: 45378; J2704; J7120

== ENCOUNTER 2023-08-16 12:01 | Outpatient (CLI) | payer MEDICARE, MEDICAID, SELFPAY ==
[2023-08-16 12:48] LABS: Basophils Percent Auto 0.3 % (0.2-1.2); Eosinophils Absolute Auto 0.2 K/mm3 (0-0.3); Eosinophils Percent Auto 2.9 % (0-4.4); Hematocrit 35.1 % (37.0-47.0); Hemoglobin 11.6 g/dL (12.0-15.0); Immature Granulocyte Absolute 0.04 K/mm3 (0.00-0.031); Immature Granulocyte Percent A 0.5 % (0-0.5); Lymphocytes Absolute Auto 0.89 K/mm3 (0.9-3.2); Lymphocytes Percent Auto 12.2 % (18.3-44.2); Mean Corpuscular Hemoglobin 30.5 pg (26-34); Mean Corpuscular Volume 92.4 fl (80-100); Mean Platelet Volume 8.7 fl (7.4-10.4); Monocytes Absolute Auto 0.7 K/mm3 (0.1-0.6); Monocytes Percent Auto 9.4 % (2.6-8.5); Neutrophils Absolute Auto 5.5 K/mm3 (1.3-6.7); Neutrophils Percent Auto 74.7 % (45.5-73.1); Platelet Count Result 263 k/mm3 (150-375); Red Cell Distribution Width 13.2 % (11.5-14.5); White Blood Count 7.3 K/mm3 (4.5-10.0)
[2023-08-16 12:56] LABS: Alanine Aminotransferase 22 U/L (6-35); Albumin Level 4.4 g/dL (3.5-5.1); Alkaline Phosphatase 111 U/L (38-126); Anion Gap 7 mmol/L (4-12); Aspartate Amino Transferase 35 U/L (14-36); Bilirubin,Total 0.7 mg/dL (0.2-1.3); Blood Urea Nitrogen 16 mg/dL (7-17); Carbon Dioxide 26 mmol/L (22-30); Chloride 98 mmol/L (98-107); Cholesterol 158 mg/dL (0-200); Estimated Glomerular Filt Rate > 60; Glucose 101 mg/dL (65-110); HDL Direct 45 mg/dL; Potassium 4.7 mmol/L (3.4-5.0); Sodium 131 mmol/L (137-145); Triglycerides 88 mg/dL (<150)
[2023-08-16 13:07] LABS: LDL Cholesterol Direct 98 mg/dL
[2023-08-16 13:26] LABS: Thyroid Stimulating Hormone 0.252 uIU/mL (0.465-4.680)
[2023-08-16 14:11] LABS: Free T4 Free Thyroxine 1.63 ng/mL (0.78-2.19)
== END 2023-08-16 12:02 | disposition home or self-care (01) ==
LOC: ANHLAB 12:05
PROVIDERS: PCP Family Medicine; Visit Provider Physician Assistant
DX: D72.829 Elevated white blood cell count, unspecified (principal); E03.9 Hypothyroidism, unspecified; E78.5 Hyperlipidemia, unspecified; I50.9 Heart failure, unspecified; J44.9 Chronic obstructive pulmonary disease, unspecified; E66.3 Overweight; E07.9 Disorder of thyroid, unspecified
CPT/HCPCS: 36415; 80053; 80061; 84439; 84443; 85025

== ENCOUNTER 2024-07-01 12:30 | Outpatient (CLI) | payer MEDICARE, MEDICAID, SELFPAY ==
--- NOTE | ~2024-07-01 | CT_ITS ---
CT Scan of the Chest without Contrast: Clinical Indication: Lung cancer screening, nicotine dependence Technique: Contiguous sections were acquired throughout the chest without intravenous contrast. Dose reduction technique was used on this scan by utilizing automated exposure control and iterative recon struction technique. The dose-length product (DLP) was 118.35 mGy-cm. Findings: There is no evidence of any significant mediastinal, hilar or axillary lymphadenopathy. The mediastin al soft tissues appear normal. There is no evidence of pleural or pericardial effusion. The lungs are clear. No pulmonary nodules or infiltrates are noted. Mild emphysema present. Images through the upper abdomen reveal no abnormalities. Impression: Lung RADS 1: Negative. 12 month follow-up screening CT advised. Reviewed, dictated and finalized at location . Impression: Lung RADS 1: Negative. 12 month follow-up screening CT advised.
--- OUTSIDE RECORDS SUMMARY | 2024-07-01 12:52 | XMS_ITS | CONTINUITY OF CARE DOCUMENT ---
Author Name crys henriquebairon Address Unknown Organization [facility] Address [address] [place] [address] Phone [phone] Care Team Providers Care Air Table Operator Name Role Phone No MARQUEZ, Sylvester Unavailable [phone] LOREN MARQUEZ, HALLEY Unavailable LOREN MARQUEZ, HALLEY Unavailable [phone] PROBLEMS Condition Status Date Provider Notes Cardiology examination active Sylvester Sarabia MD VENOUS INSUFFICIENCY active Sylvester Sarabia MD Leg edema, bilateral active Sylvester Sarabia MD Tobacco abuse active Sylvester Sarabia MD IBS active Sylvester Sarabia MD ENCOUNTERS Date Type Provider Location Encounter Diag nosis - In-person encounter Office Visit Sylvester Sarabia MD [facility] - In-person encounter Office Visit Sylvester Sarabia MD [facility] - In-person encounter Office Visit Sylvester Sarabia MD [facility] Cardiology examinationVENOUS INSUFFICIENCYLeg edema, bilateralTobacco abuseIBS VITAL SIGNS Date Observation Value Provider Body Mass Index (Ratio) 24.69 kg/m2 Marshall Sarabia MD blood pressure, cuff size regular Ja rret blood pressure, diastolic 54 mm[Hg] Ja rret blood pressure, systolic 106 mm[Hg] Prerna pulse rate 86 /min Raúl respiratory rate E&M 12 /min Raúl oxygen saturation, oximetry 96 % [facility] weight E&M 153 [lb_av] Raúl height E&M 66 [in_i] Raúl Body Mass Index (Ratio) 24.53 kg/m2 Marshall Sarabia MD blood pressure, cuff size regular Ry[place] blood pressure, diastolic 53 mm[Hg] [facility] blood pressure, systolic 106 mm[Hg] Prerna pulse rate 71 /min Raúl oxygen saturation, oximetry 100 % [facility] respiratory rate E&M 12 /min [facility] weight E&M 152 [lb_av] Raúl height E&M 66 [in_i] [facility] Body Mass Index (Ratio) 24.53 kg/m2 Marshall Sarabia MD blood pressure, diastolic 64 mm[Hg] Li nkLogic blood pressure, systolic 113 mm[Hg] Jeanine kLogsheri respiratory rate E&M 16 /min Mita brunson blood pressure, diastolic 64 mm[Hg] Orquidea Alexandre blood pressure, systolic 113 mm[Hg] Tita Alexandre oxygen saturation, oximetry 95 % Mita Alexandre pulse rate 68 /min Mita Alexandre weight E&M 152 [lb_av] Mita Alexandre height E&M 66 [in_i] Mita Alexandre blood pressure, cuff size large An ya Baldomero ALLERGIES No Known Drug Allergies HISTORY OF MEDICATION USE Medication Status Instructions Dates Provider Indications Com ments triamcinolone acetonide 0.1% cream active APPLY TOPICALLY TWICE A DAY Sylvester Sarabia MD lactulose 10 gram/15 mL solution active TAKE 30ML BY MOUTH THREE TIMES A DAY Sylvester Sarabia MD spironolactone 25 mg tablet active TAKE 1 TABLET BY MOUTH EVERY DAY Sylvester Sarabia MD levothyroxine 175 mcg tablet active TAKE 1 TABLET BY MOUTH EVERY DAY Sylvester Sarabia MD albuterol sulfate 90 mcg/actuation HFA aerosol inhaler active INHALE 1 PUFF BY MOUTH FOUR TIMES DAILY NEEDED FOR SHORTNESS OF BREATH OR WHEEZING Sylvester Sarabia MD furosemide 40 mg tablet active TAKE 1 TABLET BY MOUTH EVERY DAY Sylvester Sarabia MD sertraline 25 mg tablet active TAKE 1 TABLET BY MOUTH EVERY DAY Sylvester Sarabia MD SOCIAL HISTORY Date Observation Value Provider social history E&M S moking History: P atient currently smokes every day. P atient has been counseled to quit. Sylvester Sarabia MD smoking/tobacco cess ation, patient education and counseling yes Sylvester Sarabia MD smoking history, tot al pack/day 0.5 Sylvester Sarabia MD cigarette use yes Sylvester Honeycutt smoking status Current every day smoker Andrea Sarabia MD social history reviewed E&M revi ewed - no changes required Sylvester Sarabia MD smoking/tobacco cess ation, patient education and counseling yes Sylvester Sarabia MD smoking history, tot al pack/day 0.5 Sylvester Sarabia MD cigarette use yes Sylvester Honeycutt smoking status Current every day smoker U nesha Sarabia MD social history reviewed E&M revi ewed - no changes required Sylvester Sarabia MD social history E&M Smoking Histo ry: P atient currently smokes every day. P atient has been counseled to quit. Sylvester Sarabia MD drug use no Sylvester Sarabia MD alcohol use no Sylvester Sarabia MD social history E&M S moking History: P trinity currently smokes every day. P trinity has been counseled to quit. Sylvester Sarabia MD social history reviewed E&M revi ewed - no changes required Sylvester Sarabia MD smoking/tobacco cess ation, patient education and counseling yes Sylvester Sarabia MD smoking history, tot al pack/day 0.5 Mita Alexandre cigarette use yes Mita Alexandre smoking status Current every day smoker A grabiel Alexandre INSURANCE PROVIDERS Payer name Policy type / Coverage type [place] [employer] [facility] Medicaid 3 [id number] [place] MEDIC[place] Medicare [id number] ADVANCE DIRECTIVES Name Date DISCUSSED - NO DECISION MADE TREATMENT PLAN Date Name Performer [id number],C,V enous studies showed GSV and SSV reflux on left side only Sylvester Sarabia MD [id number],C,O NLY right leg is swollen today. She has been instructed to use compression stockings and to monitor for development of her Sx Sylvester Sarabia MD [id number],C,T he Patient was reencouraged to stop smoking. Sylvester Sarabia MD [id number],C,P ossibly due to pulmonary HTN from lung disease such as COPD. Will arrange a right heart cath and continue on the same meds. Sylvester Sarabia MD [id number],S,T he Patient was encouraged to stop smoking. Sylvester Sarabia MD [id number],N, Sylvester Sarabia MD [id number],C,C ould be combination of variocse veins and pulmonary HTN so will check echo and venous studies Sylvester No MD Cardiology:Venous st udies showed GSV and SSV reflux on left side only Sylvester Sarabia MD Cardiology:ONLY righ t leg is swollen today. She has been instructed to use compression stockings and to monitor for development of her Sx Sylvester Sarabia MD Cardiology:The Patie nt was reencouraged to stop smoking. Sylvester Sarabia MD Cardiology:Possibly due to pulmonary HTN from lung disease such as COPD. Will arrange a right heart cath and continue on the same meds. Sylvester Sarabia MD Cardiology:The Patie nt was encouraged to stop smoking. Sylvester Sarabia MD Cardiology Sylvester Sarabia MD Cardiology:Could be combination of variocse veins and pulmonary HTN so will check echo and venous studies Sylvester Sarabia MD Date Name CBC (INCLUDES DIFF/P LT) LIPID PANEL Partial Thromboplast in Time, Activated PROBNP, N TERMINAL BASIC METABOLIC PANE L W/EGFR Venous Doppler Bilat eral LE - Reflux Complete Echo HISTORY OF PROCEDURES Procedure Date Procedure Name Provider Procedure Notes S tatus EKG Sylvester Sarabia MD completed
--- OUTSIDE RECORDS SUMMARY | 2024-07-01 12:52 | XMS_ITS ---
Author Name Auto Generated, Auto Generated Organization [facility] ices Address [address] [place] [address] Phone [phone] Care Team Providers Care Pathology Teacher Name Role Phone Rashel Preciado Unavailable [phone] Mayank Stevens Unavailable Jacklyn Devlin beth Unavailable [phone] Functional Status No Results Mental Status No Results Allergies and Intolerances Name Onset Date Reaction Severity Aleve (Allergy) Sat Apr 25 15:17:00 EST 2020 aspirin (Allergy) Sat Apr 25 15:17:00 EST 2020 Medications Medication Directions Start Date End Date Vitamin D2 1,250 mcg (50,000 unit) capsule 1 capsule CAPSULE Oral 2 Times Weekly MonMay 01 13:00:00 EST 2020May 08 01:00:00 EST 2020 sodium chloride 1 gram tablet 1 tab TABLET Oral 1 Time Daily hyponatremia MonApr 30 09:00:00 EST 2020May 08 01:00:00 EST 2020 ezetimibe 10 mg tablet 1 tab TABLET Oral 1 Time Daily HLD MonApr 30 09:00:00 EST 2020May 08 01:00:00 EST 2020 levothyroxine 150 mcg tablet 1 tab TABLET Oral 1 Time Daily hypothyroidsm MonApr 30 06:00:00 EST 2020May 08 01:00:00 EST 2020 multivitamin with minerals tablet 1 tab TABLET Oral 1 Time Daily supplement MonApr 29 09:00:00 EST 2020May 08 01:00:00 EST 2020 levothyroxine 125 mcg tablet 1 tab TABLET Oral 1 Time Daily hypothyroidsm Sun Apr 26 06:00:00 EST 2020Apr 29 11:23:00 EST 2020 amoxicillin 875 mg-potassium clavulanate 125 mg tablet 1 tab TABLET Oral 1 Time Daily for 1 Day pneumonia MonApr 25 18:00:00 EST 2020 Sun Apr 26 17:59:00 EST 2020 amoxicillin 875 mg-potassium clavulanate 125 mg tablet 1 tab TABLET Oral 2 Times Daily for 2 Days pneumonia Monb 09:00:00 EST 2020Apr 28 08:59:00 EST 2020 furosemide 40 mg tablet 1 tab TABLET Ora l 1 Time Daily MonApr 26 09:00:00 EST 2020May 08 01:00:00 EST 2020 Problems Active Concerns * Hypertensive heart and chronic kidney disease with heart failure and stage 1 through stage 4 chronic kidney disease, or unspecified chronic kidney disease * Code: * Start Date: MonApr 25 00:00:00 EST 2020 * End Date: * Text: * Chronic diastolic (congestive) heart failure* Code: * Start Date: MonApr 25 00:00:00 EST 2020 * End Date: * Text: * Chronic kidney disease, stage 3 unspecified* Code: * Start Date: MonApr 25 00:00:00 EST 2020 * End Date: * Text: * Pneumonia, unspecified organism* Code: * Start Date: MonApr 25 00:00:00 EST 2020 * End Date: * Text: * Rhabdomyolysis* Code: * Start Date: MonApr 25 00:00:00 2020 * End Date: * Text: * History of falling* Code: * Start Date: MonApr 25 00:00:00 EST 2020 * End Date: * Text: * Anemia, unspecified* Code: * Start Date: MonApr 25 00:00:00 EST 2020 * End Date: * Text: * Hypothyroidism, unspecified* Code: * Start Date: MonApr 25 00:00:00 EST 2020 * End Date: * Text: * Encephalopathy, unspecified* Code: * Start Date: MonApr 25 00:00:00 EST 2020 * End Date: * Text: * Irritable bowel syndrome with diarrhea* Code: * Start Date: MonApr 25 00:00:00 EST 2020 * End Date: * Text: * Nicotine dependence, unspecified, uncomplicated* Code: * Start Date: MonApr 25 00:00:00 EST 2020 * End Date: * Text: Reason for Referral Past Medical History
[2024-07-01 13:41] LABS: Basophils Percent Auto 0.4 % (0.2-1.2); Eosinophils Absolute Auto 0.2 K/mm3 (0-0.3); Eosinophils Percent Auto 3.1 % (0-4.4); Hematocrit 36.2 % (37.0-47.0); Hemoglobin 11.8 g/dL (12.0-15.0); Immature Granulocyte Absolute 0.05 K/mm3 (0.00-0.031); Immature Granulocyte Percent A 0.6 % (0-0.5); Lymphocytes Absolute Auto 1.05 K/mm3 (0.9-3.2); Lymphocytes Percent Auto 13.5 % (18.3-44.2); Mean Corpuscular HGB Conc 32.6 g/dl (32-36); Mean Corpuscular Hemoglobin 30.7 pg (26-34); Mean Corpuscular Volume 94.3 fl (80-100); Mean Platelet Volume 8.7 fl (7.4-10.4); Monocytes Absolute Auto 0.7 K/mm3 (0.1-0.6); Monocytes Percent Auto 9.5 % (2.6-8.5); Neutrophils Absolute Auto 5.6 K/mm3 (1.3-6.7); Neutrophils Percent Auto 72.9 % (45.5-73.1); Platelet Count Result 248 k/mm3 (150-375); Red Blood Count 3.84 M/mm3 (4.2-5.4); Red Cell Distribution Width 14.4 % (11.5-14.5); White Blood Count 7.8 K/mm3 (4.5-10.0)
[2024-07-01 14:02] LABS: Alanine Aminotransferase 26 U/L (6-35); Albumin Level 4.2 g/dL (3.5-5.1); Alkaline Phosphatase 101 U/L (38-126); Anion Gap 8 mmol/L (4-12); Aspartate Amino Transferase 33 U/L (14-36); Bilirubin,Total 0.6 mg/dL (0.2-1.3); Blood Urea Nitrogen 16 mg/dL (7-17); Calcium 8.8 mg/dL (8.4-10.2); Carbon Dioxide 28 mmol/L (22-30); Chloride 100 mmol/L (98-107); Cholesterol 193 mg/dL (0-200); Estimated Glomerular Filt Rate 58; Glucose 85 mg/dL (65-110); HDL Direct 56 mg/dL; Potassium 4.3 mmol/L (3.4-5.0); Sodium 136 mmol/L (137-145); Triglycerides 118 mg/dL (<150)
[2024-07-01 14:15] LABS: LDL Cholesterol Direct 93 mg/dL
[2024-07-01 14:44] LABS: Free T4 Free Thyroxine 1.46 ng/dL (0.78-2.19)
[2024-07-01 15:25] LABS: Hemoglobin A1C 5.6 % (<5.7)
== END 2024-07-01 12:31 | disposition home or self-care (01) ==
PROVIDERS: PCP Family Medicine; Visit Provider Physician Assistant
DX: Z12.2 Encounter for screening for malignant neoplasm of respiratory organs (principal); I50.9 Heart failure, unspecified; E78.5 Hyperlipidemia, unspecified; E03.9 Hypothyroidism, unspecified; E07.9 Disorder of thyroid, unspecified; Z13.1 Encounter for screening for diabetes mellitus; Z87.891 Personal history of nicotine dependence
CPT/HCPCS: 36415; 71271; 80053; 80061; 83036; 84439; 84443; 85025

== ENCOUNTER 2024-07-10 12:54 | Outpatient (CLI) | payer MEDICARE, MEDICAID, SELFPAY ==
--- OUTSIDE RECORDS SUMMARY | 2024-07-10 13:01 | XMS_ITS ---
Author Name Auto Generated, Auto Generated Organization [facility] ices Address [address] [place] [address] Phone [phone] Care Team Providers Care Fondant Puff Maker Name Role Phone Rashel Preciado Unavailable [phone] Mayank Stevens Unavailable [phone] Jacklyn Devlin beth Unavailable [phone] Functional Status No Results Mental Status [...]
--- OUTSIDE RECORDS SUMMARY | 2024-07-10 13:01 | XMS_ITS | CONTINUITY OF CARE DOCUMENT ---
Author Name henriquebairon henriquebairon Address Unknown Organization [facility] Address [address] [address] [place] [address] Phone [phone] Care Team Providers Care Die Trouble Shooter Name Role Phone No MARQUEZ, Sylvester Unavailable LOREN MARQUEZ, HALLEY Unavailable LOREN MARQUEZ, HALLEY Unavailable [phone] PROBLEMS Condition Status Date Provider Notes IBS active Sylvester Sarabia MD Tobacco abuse active Sylvester Sarabia MD Leg edema, bilateral active Sylvester Sarabia MD VENOUS INSUFFICIENCY active Sylvester Sarabia MD Cardiology examination active Sylvester Sarabia MD ENCOUNTERS Date Type Provider Location Encounter Diag nosis - In-person encounter Office Visit Sylvester Sarabia MD [facility] - In-person encounter Office Visit Sylvester Sarabia MD [facility] - In-person encounter Office Visit Sylvester Sarabia MD [facility] Cardiology examinationVENOUS INSUFFICIENCYLeg edema, bilateralTobacco abuseIBS VITAL SIGNS Date Observation Value Provider Body Mass Index (Ratio) 24.69 kg/m2 Marshall Sarabia MD blood pressure, cuff size regular Ja rret blood pressure, diastolic 54 mm[Hg] Ja rret blood pressure, systolic 106 mm[Hg] Prerna pulse rate 86 /min Raúl respiratory rate E&M 12 /min Raúl oxygen saturation, oximetry 96 % [facility] weight E&M 153 [lb_av] Raúl height E&M 66 [in_i] [facility] Body Mass Index (Ratio) 24.53 kg/m2 Marshall Sarabia MD blood pressure, cuff size regular Ryne blood pressure, diastolic 53 mm[Hg] Ryne [facility] blood pressure, systolic 106 mm[Hg] Prerna pulse rate 71 /min Raúl oxygen saturation, oximetry 100 % [facility] respiratory rate E&M 12 /min [facility] weight E&M 152 [lb_av] Raúl height E&M 66 [in_i] [facility] Body Mass Index (Ratio) 24.53 kg/m2 Marshall Sarabia MD blood pressure, diastolic 64 mm[Hg] Li nkLogic blood pressure, systolic 113 mm[Hg] Jeanine kLogsheri respiratory rate E&M 16 /min Mita brunson blood pressure, diastolic 64 mm[Hg] Pedro Pablo Alexandre blood pressure, systolic 113 mm[Hg] Tita [...] Payer name Policy type / Coverage type [place] red constitution party ID [facility] Medicaid 3 [id number] [place] MEDIC[place] Medicare [id number] ADVANCE DIRECTIVES Name Date DISCUSSED - NO DECISION MADE TREATMENT PLAN Date Name Performer [id number],C,V enous studies showed GSV and SSV reflux on left side only Sylvester Sarabia MD [id number],C,O NLY right leg is swollen today. She has been instructed to use compression stockings and to monitor for development of her Sx Sylvester Sarabia MD [id number],C,T he Patient was reencouraged to stop smoking. Sylvester Sarabia MD [id number],C,P ossibly due to pulmonary HTN from lung disease such as COPD. Will arrange a right heart cath and continue on the same meds. Sylvester Sarabia MD [id number],S,T he Patient was encouraged to stop smoking. Sylvester Sarabia MD [id number],N, Sylvester Sarabia MD [id number],C,C ould be combination of variocse veins and [...]
--- NOTE | 2024-07-10 16:35 | WPDPFTINT ---
PFT Procedure Performed PFT Procedure Performed Spirometry with Pre/Post Bronchodilator Plethysmography (Lung Vol) Diffusing Cap (DLCO) Flow Vol Loop PFT Interpretation This is a pulmonary function test with pre and post-bronchodilator spirometry, plethysmography and diffusing capacity. The test was performed and results interpreted in accordance with the 2019 and 2005 ATS/ERS Task Force guidelines respectively using the Global Lung Function Initiative-2012 reference equations. Patient demonstrated good effort and cooperation. Reproducibility criteria were met. The quality of the pre bronchodilator spirometry maneuver was Grade A and post bronchodilator spirometry maneuver was Grade B. Findings: Spirometry: There is decreased maximal expiratory airflow at all lung volumes with concave expiratory flow tracing. The contour the inspiratory flow tracing is normal. The pre bronchodilator FVC is 2.54 L, 84% predicted. The pre bronchodilator FEV1 is 1.03 L, 44% predicted. The pre bronchodilator FEV1: FVC ratio is 41%. The post bronchodilator FVC is 2.63 L, representing a 4% increase. The post bronchodilator FEV1 is 0.99 L, representing a 4% decrease. The post bronchodilator FEV1: FVC ratio is 38%. Plethysmography: The total lung capacity is 6.12 L, 114% predicted. The functional residual capacity is 4.42 L, 143% predicted. The residual volume is 3.58 L, 155% predicted. The residual volume: Total lung capacity ratio is 59%. Diffusing capacity: The diffusing capacity unadjusted for hemoglobin and carboxyhemoglobin is 10.3, 49% predicted. The diffusing capacity adjusted for alveolar volume is 2.97, 71% predicted. Impression: There is a severe obstructive abnormality. There is no significant improvement after inhaling a single dose of albuterol. The increase in residual volume to total lung volume ratio is consistent with hyperinflation from an obstructive abnormality. The diffusing capacity unadjusted for hemoglobin and carboxyhemoglobin is moderately decreased and normalizes when adjusted for alveolar volume. There are no prior studies for comparison
== END 2024-07-10 12:55 | disposition home or self-care (01) ==
PROVIDERS: PCP Family Medicine; Visit Provider Physician Assistant
DX: J44.9 Chronic obstructive pulmonary disease, unspecified (principal); J43.9 Emphysema, unspecified; R94.2 Abnormal results of pulmonary function studies
CPT/HCPCS: 94060; 94726; 94729